=== PATIENT | female | born 1950 | race Caucasian/White ===

== ENCOUNTER → 2023-06-05 12:47 | Outpatient (REF) | payer MEDICARE, SELFPAY ==
--- NOTE | 2023-06-05 12:52 | CA_ITS ---
Transthoracic Echocardiogram Patient (Last, First, Middle): Bethany Cole J Gender: Female Date of : 1950 Age: 72 Procedure Date: 06/05/2023 Procedure Type: Transthoracic Echocardiogram Location: OP Height: 167.64 cm Weight: 77.11 kg BSA: 1.87 m2 Heart Rate: bpm BP: 118 / 56 mmHg Wire Tester: ADAM Referring MD: Jean Claude Fall MD Woodworking Machine Feeder: Nico Xiong MD Symptoms: ABN.EKG. CP, DYSPNEA ON EXERTION ,MURMUR R07.9 R94.31 R01.1 Study Quality: Adequate w Contrast ECG Rhythm: Sinus Conclusions: - 1. Normal LV systolic function with LVEF of 65-70% 2. Mildly dilated left atrium 3. Normal cardiac valvular Doppler 4. Normal RV systolic pressure 5. No pericardial effusion Findings Left Ventricle Normal left ventricular size, thickness, and systolic function. The visually estimated ejection fraction is between 65-70%. Spectral Doppler is indicative of a normal filling pattern. Right Ventricle Normal right ventricular cavity size and systolic function. Atria The left atrium is mildly dilated. Interatrial shunt cannot be excluded. The right atrium is normal in size. Aortic Valve The aortic valve structure and function is likely normal. There is no aortic valve stenosis. There is no aortic valve regurgitation. Mitral Valve Likely normal mitral valve structure and function. There is trace mitral valve regurgitation. There is no mitral valve stenosis. Pulmonic Valve The pulmonic valve is likely normal. Tricuspid Valve Likely normal tricuspid valve structure and function. There is mild tricuspid valve regurgitation. The right ventricular systolic pressure is normal. The right ventricular systolic pressure is 31 mmHg. Normal right atrial pressure. There is no evidence of pulmonary hypertension. Great Vessels All visible segments of the aorta are normal in size. The pulmonary artery was not well visualized. Venous The inferior vena cava is normal in size and collapses greater than 50% with inspiration. Pericardium/Pleural There is no evidence of pericardial effusion. Prior Study Comparison No prior study available for comparison. Measurements 2D Linear Measurements IVSd: 1.00 0.6-0.9/0.6-1.0 cm LVIDd: 4.20 3.9-5.3/4.2-5.9 cm LVIDd Index: 2.25 2.4-3.2/2.2-3.1 cm/m2 LVIDs: 2.80 2.0-3.6 cm LVPWd: 1.00 0.7-1.1 cm Ao Root: 3.20 2.1-3.5 cm LA Diam: 4.30 2.7-3.8/3.0-4.0 cm LAIDs Index: 2.30 1.5-2.3 cm/m2 LV Mass: 170.81 67-162/88-224 g LV Mass Index: 91.34 43-95/49-115 g/m2 LVOT Diam: 2.00 3.0+(-)1.3 cm Mitral Valve MV Pk E: 1.01 MV PK A: 0.50 MV Decel Time: 287.00 E/A: 2.00 E'Lateral: 10.70 E'Medial: 7.94 E/E' Med: 12.70 E/E' Lat: 9.40 PHT: 84.00 MVA PHT: 2.62 Decel Wells: 3.52 Aortic Valve AoV Pk Chandler: 1.83 AoV Mn Chandler: 1.14 AoV VTI: 0.43 AoV Pk Grad: 13.00 Aov Mn Grad: 6.00 KANE Cont.VTI: 2.39 LVOT LVOT Pk Chandler: 1.28 LVOT Mn Chandler: 0.80 LVOT VTI: 0.33 LVOT Pk Grad: 7.00 LVOT Mn Grad: 3.00 LVOT Diam: 2.00 LVOT Area: 3.14 Diastolic Function MV Pk E: 1.01 MV Pk A: 0.50 E/A: 2.00 E'Medial: 7.94 E/E' Med: 12.70 E' Laterial: 10.70 E/E' Lat: 9.40 Right Ventricle TAPSE (mm): 33.00 TVS' Chandler: 12.00 Tricuspid Valve TR Pk Chandler: 2.66 TR Pk Grad: 28.00 RA Press: 3.00 RVSP: 31.00 Great Vessels Aorta Ao Root-2D: 3.20 2.0-3.7 cm Ao Asc: 3.40 2.1-3.4 cm Pulmonary Valve PV Pk Chandler: 1.23 Peak PV Grad: 6.00 Updated in Other Vendor System with Status of Final Nico Xiong MD electronically signed on 06/05/2023 3:25:00 PM with status of Final
== END ==
LOC: HO.CARD 12:47
PROVIDERS: PCP Internal Medicine; Visit Provider Internal Medicine
DX: R07.9 Chest pain, unspecified (principal); R94.31 Abnormal electrocardiogram [ECG] [EKG]
CPT/HCPCS: 93306; Q9957

== ENCOUNTER → 2023-06-05 12:52 | Outpatient (BNV) | payer MEDICARE, SELFPAY | PROVIDERS: PCP Internal Medicine; Visit Provider Internal Medicine Cardiovascular Disease | DX: I36.1 Nonrheumatic tricuspid (valve) insufficiency (principal) | CPT/HCPCS: 93306 ==